=== PATIENT | male | born 1985 | race African-American/Black ===

== ENCOUNTER 2017-02-02 15:00 | Emergency (ER) | payer OTHER ==
[~2017-02-02] VITALS: Ht 160 cm; Wt 68.0 kg
[2017-02-02] MEDS ORDERED: CYCL10TA35 PO (15:11)
== END 2017-02-02 16:35 | disposition home or self-care (01) ==
LOC: ED 15:00 → EDBD 15:00 → ED 16:35
DX: M62.830 Muscle spasm of back (principal)
CPT/HCPCS: 99282

== ENCOUNTER 2017-02-14 20:45 | Emergency (ER) | payer OTHER ==
[~2017-02-14] VITALS: Ht 154.9 cm; Wt 68.0 kg
[~2017-02-14 20:45] MED LIST: CYCL10TA35 PO
[2017-02-14] MEDS ORDERED: TRAM50TA PO (21:08)
== END 2017-02-14 21:42 | disposition home or self-care (01) ==
LOC: ED 20:45
DX: M54.9 Dorsalgia, unspecified (principal)
CPT/HCPCS: 99281

== ENCOUNTER 2017-02-26 11:18 | Outpatient (CLI) | payer OTHER ==
[~2017-02-26 11:18] MED LIST changes: +TRAM50TA PO
== END 2017-02-26 19:23 | disposition home or self-care (01) ==
LOC: RAD 11:18
DX: S29.012D Strain of muscle and tendon of back wall of thorax, subsequent encounter (principal)